=== PATIENT | male | born 1985 | race Caucasian/White ===

== ENCOUNTER 2019-05-28 10:26 | Emergency (ER) | payer OTHER ==
--- NOTE | 2019-05-28 10:54 | ED ---
HPI Chest Pain - HPI Summary HPI Summary: 34-year-old female presents with chest pain for the past 10 days. He states that he wasn't doing anything particular when started. He states that it's been a constant pain in his left lower chest. He states is sharp in nature. Doesn't move anywhere. feels better with ibuprofen. He has not been sick recently. No cough. States it does feel worse when he takes a deep breath. No recent travel. No family history of cardiac or pulmonary embolism. No pain or swelling in his calf muscles. No abdominal pain. No nausea or vomiting. Is unchanged with positional changes. Does not worsen with food. Never had this pain before. Has no medical conditions. is not a smoker. - History of Current Complaint Chief Complaint: EDChestPainROMI Time Seen by Provider: 05/28/19 10:36 Pain Intensity: 3 - Allergy/Home Medications Allergies/Adverse Reactions: Allergies Allergy/AdvReac Type Severity Reaction Status Date / Time No Known Allergies Allergy Verified 05/28/19 10:43 Home Medications: Home Medications NK [No Home Medications Reported] 05/28/19 [History Confirmed 05/28/19] PMH/Surg Hx/FS Hx/Imm Hx Endocrine/Hematology History: Denies: Hx Anticoagulant Therapy Respiratory History: Denies: Hx Asthma Infectious Disease History: No Infectious Disease History: Denies: Traveled Outside the [place] in Last 30 Days - Family History Known Family History: Positive: Non-Contributory - Social History Alcohol Use: None Substance Use Type: Reports: None Smoking Status (MU): Never Smoked Tobacco Review of Systems Negative: Fever Positive: Chest Pain Positive: Shortness Of Breath. Negative: Cough All Other Systems Reviewed And Are Negative: Yes Physical Exam Triage Information Reviewed: Yes Vital Signs On Initial Exam: Initial Vitals Temp Pulse Resp BP Pulse Ox 98.2 F 84 16 126/85 99 05/28/19 10:26 05/28/19 10:26 05/28/19 10:26 05/28/19 10:26 05/28/19 10:26 Vital Signs Reviewed: Yes Appearance: Positive: Well-Appearing Skin: Positive: Warm, Dry Head/Face: Positive: Normal Head/Face Inspection Eyes: Positive: Normal, Conjunctiva Clear ENT: Positive: Pharynx normal Respiratory/Lung Sounds: Positive: Clear to Auscultation, Breath Sounds Present , Other - reproducible chest pain Cardiovascular: Positive: Normal, RRR Abdomen Description: Positive: Nontender, Soft Bowel Sounds: Positive: Present Musculoskeletal: Positive: Normal Neurological: Positive: Normal Psychiatric: Positive: Normal Procedures - Sedation Patient Received Moderate/Deep Sedation with Procedure: No Diagnostics - Vital Signs Vital Signs Temp Pulse Resp BP Pulse Ox 05/28/19 10:26 98.2 F 84 16 126/85 99 - Laboratory Result Diagrams: 05/28/19 10:48 05/28/19 10:48 Lab Statement: Any lab studies that have been ordered have been reviewed, and results considered in the medical decision making process. - Radiology chest Radiology Interpretation Completed By: Radiologist Summary of Radiographic Findings: IMPRESSION: NO ACTIVE CARDIOPULMONARY DISEASE. - EKG No standard instances Cardiac Rate: NL EKG Rhythm: Sinus Rhythm Summary of EKG Findings: sinus rhythm Re-Evaluation - Re-Evaluation First Eval Re-Evaluation Time: 12:00 Change: Improved Comment: feeling better Chest Pain Course/Dx - Course Course Of Treatment: 34-year-old female presents with chest pain for the past 10 days. He states that he wasn't doing anything particular when started. He states that it's been a constant pain in his left lower chest. He states is sharp in nature. Doesn't move anywhere. feels better with ibuprofen. He has not been sick recently. No cough. States it does feel worse when he takes a deep breath. No recent travel. No family history of cardiac or pulmonary embolism. No pain or swelling in his calf muscles. No abdominal pain. No nausea or vomiting. Is unchanged with positional changes. Does not worsen with food. Never had this pain before. Has no medical conditions. On exam lungs clear to auscultation. Heart regular rhythm. reproducible chest pain. EKG shows a sinus rhythm. D-dimer is negative. Troponin is 0.01. CRP is normal. Discussed likely chest wall pain. Told to continue the naproxen. Told to follow up primary. Patient understands and agrees with plan. - Chest Pain Differential Diagnosis/HQI/PQRI: Chest Wall, Lower Respiratory Infection, Pulmonary Embolism - Diagnoses Provider Diagnoses: Chest wall pain Discharge ED - Sign-Out/Discharge Documenting (check all that apply): Patient Departure - Discharge Plan Condition: Good Disposition: HOME Patient Education Materials: Chest Wall Pain (ED) Referrals: [facility] [Outside] Additional Instructions: take tyenlol or ibuprofen every 6 hours for pain Establish care with primary Return to ED if develop any new or worsening symptoms - Billing Disposition and Condition Condition: GOOD Disposition: Home
[2019-05-28 11:09] LABS: ABS Eosinophils 0.1 10^3/ul (0-0.6); ABS Lymphocytes 1.1 10^3/ul (1.0-4.8); ABS Monocytes 0.8 10^3/ul (0-0.8); ABS Neutrophils 5.4 10^3/ul (1.5-7.7); Eosinophil % 0.9 %; Hematocrit 43 % (42-52); Hemoglobin 14.8 g/dL (14.0-18.0); Lymphocyte % 14.8 %; Mean Corpuscular HGB Conc 35 g/dL (31-36); Mean Corpuscular Hemoglobin 31 pg (27-31); Mean Corpuscular Volume 88 fL (80-94); Mean Platelet Volume 8.5 fL (7.4-10.4); Platelet Count 190 10^3/uL (150-450); Red Blood Count 4.82 10^6 /uL (4.18-5.48); Red Cell Distribution Width 13 % (10-15); White Blood Count 7.5 10^3/uL (3.5-10.8)
[2019-05-28] MEDS ORDERED: Ketorolac INJ* 30 MG/ML 1 ML VIAL IM ONE (11:09)
[2019-05-28 11:13] LABS: INR 1.06 (0.82-1.09)
[2019-05-28 11:18] LABS: Albumin 4.1 g/dL (3.2-5.2); Albumin/Globulin Ratio 1.6 (1-3); BUN/Creatinine Ratio 13.2 (8-20); C Reactive Protein 7.16 mg/L (<8.01); Calcium 9.3 mg/dL (8.6-10.3); EGFR African American 97.4 (>60); EGFR Non-African American 80.5 (>60); Globulin 2.5 g/dL (2-4); Potassium 4.1 mmol/L (3.5-5.0); Total Bilirubin 0.6 mg/dL (0.2-1.0); Total Protein 6.6 g/dL (6.4-8.9); Troponin I 0.01 ng/mL (<0.04)
[2019-05-28 12:05] VITALS: BP 111/73
== END 2019-05-28 12:04 | disposition home or self-care (01) ==
LOC: ED 10:26
DX: R07.89 Other chest pain (principal)
CPT/HCPCS: 36415; 71046; 80053; 84484; 85025; 85379; 85610; 86140; 93005; 96372; 99282; J1885